=== PATIENT | male | born 1950 | race Caucasian/White ===

== ENCOUNTER 2018-05-03 08:56 | Emergency (ER) | payer MEDICARE ==
[~2018-05-03] VITALS: Ht 170.2 cm; Wt 97.7 kg
[2018-05-03 08:58] VITALS: Ht 170.2 cm; Wt 97.7 kg
[2018-05-03] MEDS ORDERED: LISINOPRIL10 MG PO (08:59)
[2018-05-03] MEDS ORDERED: CLARITIN 10 MG10 MG PO (09:00)
[2018-05-03] MEDS ORDERED: SINGULAIR10 MG PO (09:00)
[2018-05-03] MEDS ORDERED: KLONOPIN0.5 MG PO (09:00)
[2018-05-03 09:21] LABS: BASOPHILS 0.5 % (0-2); EOSINOPHILS 2.1 % (0-7); HEMOGLOBIN 14.2 g/dL (13.5-17.5); IMMATURE GRANULOCYTES 0.4 % (0-5); LYMPHOCYTES 21.5 % (15-50); MCH 31.3 pg (26.0-34.0); MCHC 34.6 g/dL (31.0-37.0); MCV 90.5 fL (80.0-100.0); MEAN PLATELET VOLUME 9.4 fL (7.4-10.4); MONOCYTES 8.5 % (2-11); PLATELET COUNT 226 10x3/uL (130-400); RBC 4.53 10x6/uL (4.20-6.10); RDW 14.1 % (11.5-14.5)
[2018-05-03 09:30] LABS: APTT 28.5 SECONDS (22.8-39.4); INR 1.11 (0.85-1.17); PROTIME 13.8 SECONDS (11.6-15.0)
[2018-05-03 09:34] LABS: ALBUMIN 4.2 g/dL (3.4-5.0); ALKALINE PHOSPHATASE 52 U/L (46-116); ALT (SGPT) 63 U/L (10-68); BILIRUBIN - TOTAL 1.08 mg/dL (0.2-1.3); CALC OSMOLALITY 283 mosm/kg (275-300); CALCIUM 9.2 mg/dL (8.5-10.1); CARBON DIOXIDE 29.3 mmol/L (21.0-32.0); CHLORIDE - SERUM 105 mmol/L (98-107); CREATININE - SERUM 1.1 mg/dL (0.6-1.3); GLUCOSE 116 mg/dL (74-106); POTASSIUM - SERUM 4.1 mmol/L (3.5-5.1); PROTEIN - SERUM 7.7 g/dL (6.4-8.2); SODIUM 142 mmol/L (136-145); UREA NITROGEN 12 mg/dL (7-18); eGFR NON AFRICAN AMERICAN 71 mL/min (90-120)
[2018-05-03 09:44] LABS: CKMB 0.8 U/L (0.0-3.6); CREATINE KINASE 150 UL (21-232); MAGNESIUM - SERUM 1.9 mg/dL (1.8-2.4); THYROID STIMULATING HORMONE 2.29 uIU/mL (0.36-3.74)
[2018-05-03] MEDS ORDERED: VALTREX1000 MG PO (12:27)
[2018-05-03] MEDS ORDERED: PREDNISONE20 MG PO (12:27)
[2018-05-03 12:43] VITALS: BP 163/92
== END 2018-05-03 12:44 | disposition home or self-care (01) ==
LOC: D.ER 08:56
PROVIDERS: Family Medicine
DX: G51.0 Bell's palsy (principal)

== ENCOUNTER → 2018-08-29 08:54 | Outpatient (CLI) | payer MEDICARE, OTHER ==
[2018-05-03 08:58] VITALS: BMI 33.7
[~2018-08-29 08:54] MED LIST: CLARITIN 10 MG10 MG PO; KLONOPIN0.5 MG PO; LISINOPRIL10 MG PO; PREDNISONE20 MG PO; SINGULAIR10 MG PO; VALTREX1000 MG PO
== END | disposition home or self-care (01) ==
LOC: D.LAB 08:54
PROVIDERS: ATTEND Internal Medicine Gastroenterology
DX: K63.9 Disease of intestine, unspecified (principal)

== ENCOUNTER 2018-09-12 08:38 | Inpatient (IN) | payer MEDICARE, OTHER ==
[~2018-09-12] VITALS: Ht 170.2 cm; Wt 93.9 kg
[~2018-09-12 08:38] MED LIST changes: -LISINOPRIL10 MG PO; +LISINOPRIL20 MG PO
[2018-09-26] MEDS ORDERED: NORVASC2.5 MG PO (10:27)
[2018-09-26] MEDS ORDERED: CELEXA20 MG PO (10:28)
[2018-09-26 11:26] LABS: BASOPHILS 0.4 % (0-2); EOSINOPHILS 2.7 % (0-7); HEMATOCRIT 40.1 % (42.0-54.0); HEMOGLOBIN 13.7 g/dL (13.5-17.5); IMMATURE GRANULOCYTES 0.2 % (0-5); LYMPHOCYTES 23.8 % (15-50); MCHC 34.2 g/dL (31.0-37.0); MCV 84.8 fL (80.0-100.0); MEAN PLATELET VOLUME 9.2 fL (7.4-10.4); MONOCYTES 6.8 % (2-11); NEUTROPHILS 66.1 % (40-80); PLATELET COUNT 226 10x3/uL (130-400); RBC 4.73 10x6/uL (4.20-6.10); RDW 14.9 % (11.5-14.5); WBC 9.1 10x3/uL (4.8-10.8)
[2018-09-26 11:36] LABS: ANION GAP 11.7 mmol/L (8-16); CALCIUM 9.3 mg/dL (8.5-10.1); CARBON DIOXIDE 30.1 mmol/L (21.0-32.0); CREATININE - SERUM 1.1 mg/dL (0.6-1.3); POTASSIUM - SERUM 3.8 mmol/L (3.5-5.1)
[2018-09-27] VITALS (13 sets, daily range): BP systolic 123–149; BP diastolic 66–79; BMI 32.5
--- NOTE | 2018-09-27 10:15 | NUR ---
PATIENT TO ROOM FROM OR. IV INTACT. NO COMPLAINTS OR SIGNS OF DISTRESS. VS STABLE. BSCDS ON AND WORKING. CALL LIGHT WITHIN REACH.
--- NOTE | 2018-09-27 18:45 | NUR ---
PATIENT IN BED WITH IV INTACT. NO COMPLAINTS OR SIGNS OF DISTRESS. BSCDS ON AND WORKING. IS AT BEDSIDE. EXPLAINED EARLIER HOW TO USE. PATIENT DEMONSTRATED BACK. VS HAVE BEEN WITHIN NORMAL LIMITS. CALL LIGHT WITHIN REACH.
--- NOTE | 2018-09-27 20:00 | NUR ---
ASSESSMENT PER FLOWSHEET. NPO EXCEPT FOR ICE CHIPS. LAP SITES X2 TO ABDOMEN C/D/I. MIDLINE INCISION WITH DRSG C/D/I. IV PATENT LEFT HAND OF NS AT 125CC'S/HR SITE CLEAR. COLLECTION DEVELOPMENT LIBRARIAN OF DIOLAUDID IN USE WITH SETTINGS AT 0.2MG Q10MIN W/4MG Q4HR L/O. O2 ON 2L/M PER NC NO DISTRESS SEEN HOB UP 30 DEGREES. SR UP X2 CALL LIGHT WITHIN REACH..
--- NOTE | 2018-09-27 22:00 | NUR ---
MEDS GIVEN PER MAR.
[2018-09-28] VITALS: BP 155/80
--- NOTE | 2018-09-28 | NUR ---
EYES CLOSED RESPIRATIONS WITH EASE AND UNLABORED.
--- NOTE | 2018-09-28 02:01 | NUR ---
RESTING QUIETLY DENIES NEEDS.
--- NOTE | 2018-09-28 05:30 | NUR ---
MEDS GIVEN PER ROYCE QUIETLY TAKING ICE CHIPS PO WITHOUT PROBLEMS.
[2018-09-28 06:30] LABS: BASOPHILS 0.2 % (0-2); EOSINOPHILS 0.7 % (0-7); HEMATOCRIT 40.1 % (42.0-54.0); HEMOGLOBIN 13.5 g/dL (13.5-17.5); IMMATURE GRANULOCYTES 0.4 % (0-5); MCH 28.8 pg (26.0-34.0); MCHC 33.7 g/dL (31.0-37.0); MCV 85.5 fL (80.0-100.0); MEAN PLATELET VOLUME 9.8 fL (7.4-10.4); MONOCYTES 9.4 % (2-11); NEUTROPHILS 76.3 % (40-80); PLATELET COUNT 231 10x3/uL (130-400); RBC 4.69 10x6/uL (4.20-6.10); RDW 15.1 % (11.5-14.5); WBC 10.6 10x3/uL (4.8-10.8)
[2018-09-28 06:56] LABS: CALC OSMOLALITY 274 mosm/kg (275-300); CALCIUM 8.3 mg/dL (8.5-10.1); CARBON DIOXIDE 26.1 mmol/L (21.0-32.0); CHLORIDE - SERUM 103 mmol/L (98-107); GLUCOSE 97 mg/dL (74-106); POTASSIUM - SERUM 4.1 mmol/L (3.5-5.1); SODIUM 138 mmol/L (136-145); UREA NITROGEN 10 mg/dL (7-18); eGFR NON AFRICAN AMERICAN 79 mL/min (90-120)
--- NOTE | 2018-09-28 07:38 | NUR ---
ALERT AND ORIENTED, RESTING IN BED. POD #1 HOUSE COLECTOMY. 2 LAP SITES ON ABDOMEN, C/D/I. STOVER CATHETER PRESENT. SCDS PRESENT. ON 2L O2, NC. IV TO LEFT HAND, NS INFUSING 125ML/HR. NO C/O PAIN, NOT USING BENCH PRECISION ASSEMBLER DILAUDID. PT STATES, "TYLENOL HAS BEEN MANAGING MY PAIN WELL." NO S/S OF ACUTE DISTRESS NOTED. PT DENIES ANY NEEDS. CALL LIGHT IN REACH. WILL CONTINUE TO MONITOR.
[2018-09-28 08:48] VITALS: BP 154/86
[2018-09-28 12:28] VITALS: BP 149/85
[2018-09-28 13:25] VITALS: Ht 170.2 cm; Wt 93.9 kg
[2018-09-28 18:20] VITALS: BP 138/87
--- NOTE | 2018-09-28 18:45 | NUR ---
ALERT AND ORIENTED. NO C/O PAIN. NO S/S OF ACUTE DISTRESS NOTED. PT DENIES ANY NEEDS. CALL LIGHT IN REACH. WILL CONTINUE TO MONITOR.
[2018-09-28 22:18] VITALS: BP 152/85
[2018-09-29 01:59] VITALS: BP 148/80
[2018-09-29 05:46] VITALS: BP 134/64
[2018-09-29 06:45] LABS: BASOPHILS 0.2 % (0-2); EOSINOPHILS 2.4 % (0-7); HEMATOCRIT 35.4 % (42.0-54.0); HEMOGLOBIN 12.1 g/dL (13.5-17.5); IMMATURE GRANULOCYTES 0.3 % (0-5); LYMPHOCYTES 15.5 % (15-50); MCHC 34.2 g/dL (31.0-37.0); MCV 84.9 fL (80.0-100.0); MEAN PLATELET VOLUME 9.6 fL (7.4-10.4); MONOCYTES 10.3 % (2-11); NEUTROPHILS 71.3 % (40-80); PLATELET COUNT 205 10x3/uL (130-400); RBC 4.17 10x6/uL (4.20-6.10); WBC 8.7 10x3/uL (4.8-10.8)
[2018-09-29 07:02] LABS: CALC OSMOLALITY 276 mosm/kg (275-300); CALCIUM 8.2 mg/dL (8.5-10.1); CARBON DIOXIDE 25.8 mmol/L (21.0-32.0); CHLORIDE - SERUM 106 mmol/L (98-107); CREATININE - SERUM 0.8 mg/dL (0.6-1.3); GLUCOSE 94 mg/dL (74-106); POTASSIUM - SERUM 3.7 mmol/L (3.5-5.1); SODIUM 139 mmol/L (136-145); UREA NITROGEN 9 mg/dL (7-18); eGFR NON AFRICAN AMERICAN > 90 mL/min (90-120)
--- NOTE | 2018-09-29 09:49 | NUR ---
ALERT AND ORIENTED. NO C/O PAIN. NO S/S OF ACUTE DISTRESS NOTED. IV TO LEFT HAND, NS INFUSING @ 125ML/HR. DILAUDID WELDER TOOL AND DIE, PT NOT USING. POD #2 HOUSE COLECTOMY, MIDLINE INCISION WITH 2 LAP SITES, DRESSING C/D/I. SCDS ON. PT DENIES ANY NEEDS. CALL LIGHT IN REACH. WILL CONTINUE TO MONITOR.
[2018-09-29 10:52] VITALS: BP 175/88
--- NOTE | 2018-09-29 11:36 | OP ---
PATIENT NAME: MADHURI BLACKWELL MEDICAL RECORD: [id number] :54 LOCATION:[id number] ADMISSION DATE:09/27/18 SURGEON: JAIME GREER MD DATE OF OPERATION: 09/27/2018 PREOPERATIVE DIAGNOSES: 1. Right colon mass. 2. Hypertension. POSTOPERATIVE DIAGNOSES: 1. Right colon mass. 2. Hypertension. PROCEDURE: Hand-assisted laparoscopic right hemicolectomy. SURGEON: Jaime Greer MD REPORT OF PROCEDURE: The patient's abdomen was prepped and draped in sterile fashion. A cutdown was made around the patient's umbilicus. Electrocautery was used to dissect through the subcutaneous tissues and through the fascia until we entered the abdominal cavity. Once inside, the GelPort was inserted with a 5-mm trocar within it. The abdomen was insufflated. Under direct visualization, a 5 mm trocar was placed in the epigastrium and another was placed in the right subcostal region. With these in place, we were able to start manipulation of the patient's right colon. The mass was easily palpable in the cecum and the cecum was not adherent to any surrounding structures. The white line of Toldt was taken down and the right colon was mobilized medially. We came around the hepatic flexure and took down any of the attachments and adhesions that were present until this portion of bowel was easily mobilized towards the midline and inferiorly. The patient had some vascular structures which were encountered and these were taken down with clips and electrocautery. We eventually eviscerated the right colon through the patient's wound protector. The small bowel was transected with a 55 blue load MADHAVI stapler just proximal to the terminal ileum. The transverse colon was then transected on its proximal aspect with a 55 blue load MADHAVI stapler. The mesentery was taken down with sequential clamp and tie technique and this portion of the bowel was sent off for permanent specimen. A [id number] anastomosis was performed by making enterotomies in the proximal transverse colon and distal small bowel and firing a 55 blue load MADHAVI stapler between the two. We then closed off the enterotomies using 30 blue load TA stapler and then oversewed the staple lines using Lemberted 3-0 silks. The anastomosis was then placed back into the abdominal cavity. We reinspected the abdomen and assured there was no sign of any active bleeding. We irrigated out the abdomen thoroughly with normal saline. I did not see any evidence of any other masses or lesions in the abdominal cavity. At this point, the ports and insufflation were then removed. The wound protector was then taken out. The patient's fascia was freed up on both sides and closed using running #1 loop PDS times 2. The subcutaneous tissues were reapproximated with interrupted 3-0 Vicryl and the skin incisions were all closed with shawn. COMPLICATIONS: None. CONDITION: Stable. ANESTHESIA: General endotracheal. OPERATIVE REPORT [id number] MADHURI BLACKWELL BLOOD LOSS: Minimal. TRANSINT:[id number] Voice Confirmation ID: [id number] DOCUMENT ID: [id number] JAIME GREER MD at 1136 CC: GEOVANI MCGUIRE and JACKY MCNEAL DO [id number] DICTATION DATE: 09/27/18 0952 ORCHESTRA LEADER: 09/27/18 1027 ADM IN [place] [id number] [place] [id number]
--- NOTE | 2018-09-29 12:19 | NUR ---
I have reviewed this patient and I concur with the Shift Assessment completed by the Licensed Practical Nurse today this shift.
[2018-09-29 13:33] VITALS: BP 161/89
[2018-09-29] MEDS ORDERED: HYDROCODON-ACE1 EA10 PO (14:36)
--- NOTE | 2018-09-29 15:31 | NUR ---
PT DISCHARGED HOME VIA WHEELCHAIR WITH FAMILY ACCOMPANIED BY STAFF. DISCONTINUED IV, CATHETER TIP INTACT. WENT OVER DISCHARGE INSTRUCTIONS WITH PATIENT, VERBALIZED UNDERSTANDING OF INSTRUCTIONS. PT DENIES ANY NEEDS.
--- NOTE | 2018-09-29 15:36 | MORECARE ---
CASE MANAGEMENT DISCHARGE SUMMARY PATIENT: MADHURI BLACKWELL UNIT: [id number] ADM DATE: 09/27/18 AGE: 68 : 52 SEX: M ROOM/BED: D.2222 AUTHOR: ANTONETTE POE PHYSICIAN: REFERRING PHYSICIAN: RONNIE GREER MD DATE OF SERVICE: 09/29/18 Discharge Plan Patient Name: MADHURI BLACWKELL Facility: [facility]:[place] : 1950 Planned Disposition: Home or Self Care Anticipated Discharge Date: Discharge Date: Expected LOS: Initial Reviewer: [email or web address] Initial Review Date: 09/29/2018 Generated: 09/29/18 4:35 pm DCPIA - Discharge Planning Initial Assessment Updated by [email or web address]: Tania Lowery on 09/29/18 3:34 pm * Is the patient Alert and Oriented? Yes * PCP MCGUIRE * Pharmacy HOME [facility] * Preadmission Environment Home with Family * ADLs Independent * Additional services required to return to the preadmission environment? No * Can the patient safely return to the preadmission environment? Yes * Has this patient been hospitalized within the prior 30 days at any hospital? No Patient Name: MADHURI BLACKWELL Page [id number] at 1536 All edits/amendments must be made on the electronic document DICTATION DATE: 09/29/18 1535 AUDIO VISUAL COORDINATOR: DAVID 09/29/18 1535 RPT#: [id number] DC DATE: STATUS: ADM IN [facility] [address] [place] [address] END OF REPORT
--- NOTE | 2018-09-29 15:43 | MORECARE ---
CASE MANAGEMENT DISCHARGE SUMMARY PATIENT: MADHURI BLACKWELL UNIT: [id number] ADM DATE: 09/27/18 AGE: 68 : 52 SEX: M ROOM/BED: D.2222 AUTHOR: ANTONETTE POE PHYSICIAN: REFERRING PHYSICIAN: RONNIE GREER MD DATE OF SERVICE: 09/29/18 Discharge Plan Patient Name: MADHURI BLACKWELL Facility: [facility]:[place] : 1950 Planned Disposition: Home or Self Care Anticipated Discharge Date: Discharge Date: Expected LOS: Initial Reviewer: [email or web address] Initial Review Date: 09/29/2018 Generated: 09/29/18 4:43 pm Comments DCP- Discharge Planning Updated by [email or web address]: Tania Lowery on 09/29/18 2:[address] Patient Name: MADHURI BLACKWELL Admission Status: Elective Accout number: [id number] Admission Date: 09-27-2018 : 1950 Admission Diagnosis:OTHER SPECIFIED DISEASES OF INTESTINE Attending: RONNIE GREER Current LOS: 2 Anticipated DC Date: Planned Disposition: Home or Self Care Primary Insurance: MEDICARE A & B Discharge Planning Comments: CM MET WITH PATIENT ABOUT DC PLANNING/NEEDS. DENIES NEEDS AND IS READY TO GO HOME. CM TO FOLLOW AND ASSIST. Produce Team Member: Tania Lowery DCPIA - Discharge Planning Initial Assessment Updated by [email or web address]: Tania Lowery on 09/29/18 3:34 pm * Is the patient Alert and Oriented? Yes * PCP MCGUIRE * Pharmacy HOME [facility] * Preadmission Environment Home with Family * ADLs Independent * Additional services required to return to the preadmission environment? No * Can the patient safely return to the preadmission environment? Yes * Has this patient been hospitalized within the prior 30 days at any hospital? No Last DP export: 09/29/18 2:36 pm Patient Name: MADHURI BLACKWELL Page [phone] at 1543 All edits/amendments must be made on the electronic document DICTATION DATE: 09/29/18 1549 DUPLICATION SPECIALIST: DAVID 09/29/18 1543 RPT#: [id number] DC DATE: STATUS: ADM IN [facility] [address] [place] [address] END OF REPORT
--- NOTE | 2018-09-30 09:06 | MORECARE ---
CASE MANAGEMENT DISCHARGE SUMMARY PATIENT: MADHURI BLACKWELL UNIT: [id number] ADM DATE: 09/27/18 AGE: 68 : 52 SEX: M ROOM/BED: D.2222 AUTHOR: ANTONETTE POE PHYSICIAN: REFERRING PHYSICIAN: RONNIE GREER MD DATE OF SERVICE: 09/30/18 Discharge Plan Patient Name: MADHURI BLACKWELL Facility: [facility]:[place] : 1950 Planned Disposition: Home or Self Care Anticipated Discharge Date: Discharge Date: 09/29/2018 Expected LOS: Initial Reviewer: [email or web address] Initial Review Date: 09/29/2018 Generated: 09/30/18 10:06 am Comments DCP- Discharge Planning Updated by [email or web address]: Tania Lowery on 09/29/18 2:[address] Patient Name: MADHURI BLACKWELL Admission Status: Elective Accout number: [id number] Admission Date: 09-27-2018 : 1950 Admission Diagnosis:OTHER SPECIFIED DISEASES OF INTESTINE Attending: RONNIE GREER Current LOS: 2 Anticipated DC Date: Planned Disposition: Home or Self Care Primary Insurance: MEDICARE A & B Discharge Planning Comments: CM MET WITH PATIENT ABOUT DC PLANNING/NEEDS. DENIES NEEDS AND IS READY TO GO HOME. CM TO FOLLOW AND ASSIST. Public Service Director: Tania Lowery DCPIA - Discharge Planning Initial Assessment Updated by [email or web address]: Tania Lowery on 09/29/18 3:34 pm * Is the patient Alert and Oriented? Yes * PCP MCGUIRE * Pharmacy HOME [facility] * Preadmission Environment Home with Family * ADLs Independent * Additional services required to return to the preadmission environment? No * Can the patient safely return to the preadmission environment? Yes * Has this patient been hospitalized within the prior 30 days at any hospital? No Last DP export: 09/29/18 2:43 pm Patient Name: MADHURI BLACKWELL Page [phone] at 0906 All edits/amendments must be made on the electronic document DICTATION DATE: 09/30/18905 ORANGE PICKER MACHINE OPERATOR: DAVID 09/30/18905 RPT#: [id number] DC DATE:09/29/18 STATUS: DIS IN [facility] [address] [facility] [address] END OF REPORT
--- NOTE | 2018-11-10 13:23 | DS ---
PATIENT:MADHURI BLACKWELL :54 MEDICAL RECORD: [id number] DISCHARGE SUMMARY ADMISSION DATE: 09/27/18 DISCHARGE DATE: 09/29/18 ADMISSION DIAGNOSES: 1. Right colon mass. 2. Hypertension. DISCHARGE DIAGNOSES: 1. Right colon cancer. 2. Hypertension. PROCEDURE: Hand-assisted laparoscopic right hemicolectomy on 09/27/2018. CONSULTATIONS: None. REPORT OF HOSPITALIZATION: The patient was admitted to the hospital after a successful hand-assisted laparoscopic right hemicolectomy. The patient had a normal postoperative course. On the day of discharge, he was tolerating a diet and ambulating with a return of bowel function; at that point, he was felt to be stable for discharge home. DISCHARGE INSTRUCTIONS: Return to clinic or call with any questions or concerns, fevers, chills, nausea, vomiting or worsening abdominal pain. ACTIVITIES: No heavy lifting or straining for 6 weeks postoperatively. FOLLOWUP: In clinic with me in 7-10 days. DISCHARGE MEDICATIONS: Resume home medications with the inclusion of [place] 10. TRANSINT:[id number] Voice Confirmation ID: [id number] DOCUMENT ID: [id number] RONNIE GREER MD at 1323 CC: [id number] DICTATION DATE: 11/08/18 1023 TEACHER OF THE VISUALLY IMPAIRED: 11/08/18 2311 DIS IN 09/29/18 [place] [id number] [place] [address]
== END 2018-09-29 16:06 | disposition home or self-care (01) | DRG 331 ==
LOC: D.MS 09-27 05:46 → D.SDCHOLD 09-27 05:46 → D.MS 09-27 10:29
PROVIDERS: ADMIT Surgery; ATTEND Surgery
PROC: 0DTF0ZZ Resection of Right Large Intestine, Open Approach (ICD-10-PCS; principal; 2018-09-27 08:00)
DX: K63.89 Other specified diseases of intestine (principal); I10 Essential (primary) hypertension